=== PATIENT | male | born 1940 | race Two or more races ===

== ENCOUNTER → 2018-07-03 | Outpatient (CLI) | payer MEDICARE, MEDICAID | END | disposition home or self-care (01) | LOC: HKI 10:09 | DX: M17.11 Unilateral primary osteoarthritis, right knee (principal); M25.561 Pain in right knee; I10 Essential (primary) hypertension; I83.893 Varicose veins of bilateral lower extremities with other complications | CPT/HCPCS: 20610; 73562-50 ==